=== PATIENT | male | born 1970 | race Caucasian/White ===

== ENCOUNTER 2019-06-14 11:48 | Emergency (ER) | payer OTHER ==
[~2019-06-14] VITALS: Ht 177.8 cm; Wt 83.9 kg
[2019-06-14] MEDS ORDERED: ZITHROMAX100 MG/51 (12:11)
== END 2019-06-14 14:48 | disposition home or self-care (01) ==
LOC: ER 11:48
DX: S62.624A Displaced fracture of middle phalanx of right ring finger, initial encounter for closed fracture (principal); H10.89 Other conjunctivitis; S60 Superficial injury of wrist, hand and fingers; X50.1XXS Overexertion from prolonged static or awkward postures, sequela